=== PATIENT | female | born 1995 | race Caucasian/White ===

== ENCOUNTER → 2021-01-12 | Outpatient (CLI) | payer MEDICAID ==
--- NOTE | 2021-01-12 18:15 | Diagnostic Imaging Report ---
INDICATION: , 20 weeks 2 days by LMP TECHNIQUE: Multiple real-time grayscale images were obtained over the gravid uterus. COMPARISON: None FINDINGS: There is a single live intrauterine gestation in breech presentation. The heart rate measures 146 BPM. The amniotic fluid is within normal limits subjectively. A large vertical pocket measures 3.2 cm. The placenta is anterior to the right without evidence of previa. The cervix appears normal measuring 4.8 cm in length. The stomach is seen. The cerebellum and cisterna magna are seen. The cord insertion is seen. The bladder is seen. Two umbilical arteries are seen. The kidneys are seen. Left and right ventricular outflow tracts are seen. A four-chamber heart is seen. The nose and lips are seen. The placental cord insertion is seen. The profile is seen. Bilateral arms are seen. Lateral ventricles are seen. The diaphragm is seen. Bilateral legs are seen. The upper and lower spine is seen. Biometrical measurements are as follows: Biparietal 4.76 cm, age 20 weeks 3 days. Head circumference 18.19 cm, age 20 weeks 5 days. Abdominal circumference 15.53 cm, age 20 weeks 5 days. Femur length 3.26 cm, age 20 weeks 2 days. Sonographic estimate age: 20 weeks 4 days. Sonographic estimated date of delivery: 05/28/2021. Estimated Weight: 356 gm (+/- 52 gm). LMP percentile: 56%. heart rate: 147 beats per minute. number: 1 of 1. IMPRESSION: 1. Single live intrauterine gestation measuring at 20 weeks and 4 days which is within range of clinical dates. 2. Anatomic survey. No abnormality identified. 3. Breech presentation. Dictated by: Dictated on workstation # [id number]
== END ==
LOC: RAD 15:00
PROVIDERS: ATTEND Obstetrics & Gynecology
DX: O32.1XX0 Maternal care for breech presentation, not applicable or unspecified (principal); Z3A.20 20 weeks gestation of pregnancy
CPT/HCPCS: 76805

== ENCOUNTER 2021-02-23 13:35 | Emergency (ER) | payer MEDICAID ==
[~2021-02-23] VITALS: Ht 162 cm; Wt 92.0 kg
--- OUTSIDE RECORDS SUMMARY | 2021-02-23 13:42 | XMS REPORT | Clinical Summary ---
Author Author [facility] Address Unknown Phone Unavailable Care Team Providers Care Training Program Developer Name Role Phone Arlin Ramirez MD PCP Allergies No known active allergies Medications End Date Status Medication Sig Dispensed Refills Start Date Active Ibuprofen 200 MG CAPS giving one 0 0 / 1/200 tablet every 7 6-8 hours as needed for pain(self) Active Kmauolm-Clqykvkschgsw-Ket Take 650 mg 0 feine (MIGRAINE FORMULA by mouth PO) daily. Active fluticasone (FLOVENT HFA) Inhale 1 puff 1 Inhaler 1 44 MCG/ACT inhaler into the 5 lungs 2 (two) times daily. Active fluticasone (FLONASE) 50 1 spray by 16 g 3 0 MCG/ACT nasal spray Nasal route 2 6 (two) times daily. Active albuterol (PROVENTIL HFA) inhale 2 puff 1 g 0 108 (90 BASE) MCG/ACT by inhalation 6 inhaler route every 4 - 6 hours as needed for sob/wheezing Active cetirizine (ZYRTEC) 10 MG TAKE ONE 30 tablet 1 tablet TABLET BY 6 MOUTH DAILY FOR ALLERGIES Active montelukast (SINGULAIR) TAKE ONE 30 tablet 1 10 MG tablet TABLET BY 6 MOUTH AT BEDTIME Active Problems Problem Noted Date Benign neoplasm of skin, site unspecifi ed Unspecified asthma(493.90) Allergic rhinitis, cause unspecified Immunizations Name Administration Dates Next Due DTaP 04/26/2001, 03/11/1998, , 1997, 1997 [id number],injectable (WebIZ 04/08/2009 registry) Hep B,adolescent or 1997 pediatric Hep B/HiB (Comvax) 1997, 1997 Hepatitis B, NOS 1997, 1997, 11/1997 HiB (PRP-T) 03/11/1998, 1997, , 1997 Hib,NOS (WebIZ registry) 03/11/1998, 1997 IPV 04/26/2001 Influenza IIV3 MDV 12/28/2011 (Multi-dose vial) Influenza IIV3 PFree 01/01/2010, 12/24/2005 Influenza TIV (HX thru 11/27/2007, 12/22/2006, 11/2005, 12/02/2004, Nov 13 2009) 11/15/2002, 11/28/2001, 07/2000, 12/29/1998 MMR 04/26/2001, 03/11/1998 Meningococcal 09/27/2008 Polysaccharide valent-4 Diphtheria Toxoid Conjucate (Menactra) OPV (WebIZ registry) 03/11/1998, 1997, Polio,NOS (WebIZ 03/11/1998, 1997, registry) Tdap 09/27/2008 Varicella (Varivax) 09/27/2008, 05/27/1998 Family History Medical History Relation Name Comments Other Mother kidney stones Other Other Mother - Nephrolith iasis Other Other Sister #1 - is Aliv e, Allergic rhinitis Other Other Maternal Grandmothe r - is Alive, Cancer, colon; DM Type II Other Other Paternal Grandmothe r - is Alive, Hypertension Relation Name Status Comments Mother Alive Other Other Other Other Social History Date Tobacco Use Types Packs/Day Years Used Never Smoker Smokeless Tobacco: Never Used Tobacco Cessation: Counseling Given: No Comments Alcohol Use Standard Drinks/Week No 0 (1 standard drink = 0.6 o z pure alcohol) Sex Assigned at Date Recorded Not on file Last Filed Vital Signs Reading Time Taken Comments Vital Sign 100/64 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 Blood Pressure 72 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 Pulse 38 C (100.4 F) 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 Temperature - - Respiratory Rate - - Oxygen Saturation - - Inhaled Oxygen Concentration 87.1 kg (192 lb) 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 Weight 165.1 cm (5' 5") 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 Height 31.95 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 Body Mass Index Plan of Treatment Health Maintenance Due Date Last Done Comments HPV Vaccines (1 - 2-dose 02/24/2008 series) COVID-19 Vaccine (1) 2009 Hepatitis C Screening 2015 Cervical Cancer Screening 2018 DTaP,Tdap,and Td Vaccines 09/27/2018 09/27/2008, (7 - Td or Tdap) 04/26/2001, 03/11/1998, Additional history exists Influenza Vaccine (#1) 2020 12/28/2011, 01/01/2010, 11/27/2007, Additional history exists Pneumo-Vaccine: 65+Yrs (1 2062 of 1 - PPSV23) HIB Vaccines Completed 03/11/1998, 03/11/1998, 1997, Additional history exists IPV Vaccines Completed 04/26/2001, 03/11/1998, 03/11/1998, Additional history exists MMR Vaccines-Adult Completed 04/26/2001, 03/11/1998 Meningococcal Vaccine Aged Out 09/27/2008 No longe r eligible based on patient's age to complete this topic Varicella Vaccines Completed 09/27/2008, 05/27/1998 MenB Vaccine (Bexsero) Aged Out No longer eligi ble based on patient's age to complete this topic Pneumo-Vaccine: Peds (0-5 Aged Out No longer el igible based on patient's age to Yrs) & At-Risk Patients complete this topic (6-64 Yrs) Rotavirus Vaccines Aged Out No longer eligible based on patient's age to complete this topic Results Not on filefrom Last 3 Months Insurance Type Payer Benefit Subscriber ID Effective Phone Address Plan / Dates Group [facility] 19 [id number] 2011- [address] [address] Advance Directives For more information, please contact: [phone] 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
--- NOTE | 2021-02-23 16:40 | ED Cough/URI ---
General Chief Complaint: COVID19 Suspect/Confirmed Stated Complaint: N/V,BODY ACHES,BODY ACHE,HALE,FEVER Nursing Triage Note: PT PRESENTS TO ED VIA POV FROM HOME WITH COMPLAINTS OF N/V AND BODY CHILLS STARTING TODAY. History of Present Illness Date Seen by Provider: Feb 23, 2021 Time Seen by Provider: 16:39 Initial Comments Patient is a 26-year-old female who presents ED with flulike symptoms. She states symptoms started today. She woke up feeling achy. She reports body aches, fatigue and generalized weakness. She vomited 4 times nonbilious without any blood. Patient is currently 26 weeks . She denies of any lower abdominal pain, vaginal bleeding, vaginal discharge. Currently being managed by Dr. Mckeon. Currently on prenatals. Patient slightly tachycardic. She denies any chest pain, shortness of breath, cough. She states she does not feel well. Difficulty eating and feels dehydrated. Denies fever, headache, neck pain Allergies and Home Medications Allergies Coded Allergies: No Known Drug Allergies (Unverified , 02/23/21) Patient Home Medication List Home Medication List Reviewed: Yes Review of Systems Review of Systems Constitutional: chills; No diaphoresis, No dizziness, No fever; malaise, weakness EENTM: No nose congestion, No nose pain, No throat pain, No throat swelling Respiratory: No cough, No short of breath Gastrointestinal: No abdominal pain, No diarrhea; nausea, vomiting Genitourinary: No decreased output, No discharge, No dysuria Musculoskeletal: No back pain, No gout, No joint pain Skin: No change in color All Other Systems Reviewed Negative Unless Noted: Yes Past Moumynm-Mrczoi-Fbqqgx Hx Patient Social History Tobacco Use?: No Substance use?: No Alcohol Use?: No Pt feels they are or have been: No Immunizations Up To Date First/Initial COVID19 Vaccinat: MAR 2020 Second COVID19 Vaccination Osbaldo: APRIL 2020 COVID19 Vaccine Urban Planning Teacher: VIC Past Medical History Surgery/Hospitalization HX: SX: TONSILS, WISDOM TEETH. PMH: ASTHMA Physical Exam Vital Signs - First Documented 02/23/21 14:58 Temp 35.9 Pulse 126 Resp 18 B/P (MAP) 103/71 (82) Pulse Ox 100 Capillary Refill : Less Than 3 Seconds Height: '" Weight: lbs. oz. kg; 35.00 BMI Method: General Appearance: WD/WN, no apparent distress HEENT: PERRL/EOMI, normal ENT inspection, TMs normal, pharynx normal Neck: non-tender, full range of motion, supple Respiratory: chest non-tender, lungs clear, normal breath sounds, no respiratory distress, no accessory muscle use Cardiovascular: no edema, no gallop, no JVD, tachycardia Gastrointestinal: normal bowel sounds, non tender, soft, no organomegaly Extremities: normal range of motion, non-tender, normal inspection Neurologic/Psychiatric: frame bander II-XII nml as tested Skin: normal color, warm/dry Progress/Results/Core Measures Suspected Sepsis SIRS Temperature: Pulse: 126 Respiratory Rate: 18 Laboratory Tests 02/23/21 16:59: White Blood Count 9.0 Blood Pressure 103 /71 Mean: 82 Laboratory Tests 02/23/21 16:59: Creatinine 0.76, Platelet Count 219, Total Bilirubin 0.3 Results/Orders Lab Results Laboratory Tests Test 02/23/21 14:53 02/23/21 16:59 02/23/21 17:09 Range/Units Influenza Type A (RT-PCR) Not Detected Not Detecte Influenza Type B (RT-PCR) Not Detected Not Detecte SARS-CoV-2 RNA (RT-PCR) Detected H Not Detecte White Blood Count 9.0 4.3-11.0 10^3/uL Red Blood Count 3.78 L 3.80-5.11 10^6/uL Hemoglobin 10.8 L 11.5-16.0 g/dL Hematocrit 32 L 35-52 % Mean Corpuscular Volume 84 80-99 fL Mean Corpuscular Hemoglobin 29 25-34 pg Mean Corpuscular Hemoglobin Concent 34 32-36 g/dL Red Cell Distribution Width 14.3 10.0-14.5 % Platelet Count 219 130-400 10^3/uL Mean Platelet Volume 9.5 9.0-12.2 fL Immature Granulocyte % (Auto) 2 % Neutrophils (%) (Auto) 89 H 42-75 % Lymphocytes (%) (Auto) 3 L 12-44 % Monocytes (%) (Auto) 6 0-12 % Eosinophils (%) (Auto) 1 0-10 % Basophils (%) (Auto) 0 0-10 % Neutrophils # (Auto) 8.0 H 1.8-7.8 10^3/uL Lymphocytes # (Auto) 0.2 L 1.0-4.0 10^3/uL Monocytes # (Auto) 0.5 0.0-1.0 10^3/uL Eosinophils # (Auto) 0.1 0.0-0.3 10^3/uL Basophils # (Auto) 0.0 0.0-0.1 10^3/uL Immature Granulocyte # (Auto) 0.2 H 0.0-0.1 10^3/uL Neutrophils % (Manual) 92 % Lymphocytes % (Manual) 2 % Monocytes % (Manual) 4 % Eosinophils % (Manual) 0 % Basophils % (Manual) 0 % Band Neutrophils 2 % Blood Morphology Comment NORMAL Sodium Level 136 135-145 MMOL/L Potassium Level 3.1 L 3.6-5.0 MMOL/L Chloride Level 106 98-107 MMOL/L Carbon Dioxide Level 17 L 21-32 MMOL/L Anion Gap 13 5-14 MMOL/L Blood Urea Nitrogen 5 L 7-18 MG/DL Creatinine 0.76 0.60-1.30 MG/DL Estimat Glomerular Filtration Rate 93 BUN/Creatinine Ratio 7 Glucose Level 147 H 70-105 MG/DL Calcium Level 9.0 8.5-10.1 MG/DL Corrected Calcium 9.4 8.5-10.1 MG/DL Total Bilirubin 0.3 0.1-1.0 MG/DL Aspartate Amino Transf (AST/SGOT) 13 5-34 U/L Alanine Aminotransferase (ALT/SGPT) 12 0-55 U/L Alkaline Phosphatase 86 40-136 U/L Total Protein 6.3 L 6.4-8.2 GM/DL Albumin 3.5 3.2-4.5 GM/DL Urine Color ORANGE Urine Clarity CLOUDY Urine pH 6.0 5-9 Urine Specific [place] >=1.030 1.016-1.022 Urine Protein 1+ H NEGATIVE Urine Glucose (UA) NEGATIVE NEGATIVE Urine Ketones 2+ H NEGATIVE Urine Nitrite NEGATIVE NEGATIVE Urine Bilirubin 1+ H NEGATIVE Urine Urobilinogen 0.2 < = 1.0 MG/DL Urine Leukocyte Esterase NEGATIVE NEGATIVE Urine RBC (Auto) NEGATIVE NEGATIVE Urine RBC NONE /HPF Urine WBC 2-5 /HPF Urine Squamous Epithelial Cells 10-25 H /HPF Urine Crystals NONE /LPF Urine Bacteria MODERATE H /HPF Urine Casts NONE /LPF Urine Mucus NEGATIVE /LPF Urine Culture Indicated NO My Orders Orders - KARLA LINK Cbc With Automated Diff (02/23/21 16:36) Comprehensive Metabolic Panel (02/23/21 16:36) Ua Culture If Indicated (02/23/21 16:36) Ns Iv 1000 Ml (Sodium Chloride 0.9%) (02/23/21 16:45) Metoclopramide Injection (Reglan Injecti (02/23/21 16:45) Heart Tones (02/23/21 16:38) Manual Differential (02/23/21 16:59) Ns Iv 1000 Ml (Sodium Chloride 0.9%) (02/23/21 17:45) Ekg Tracing (02/23/21 17:35) Labetalol Tablet (Normodyne Tablet) (02/23/21 18:45) Labetalol Tablet (Normodyne Tablet) (02/23/21 18:42) Medications Given in ED Current Medications Medications Dose Ordered Sig/[place] Route Start Time Stop Time Status Last Admin Dose Admin Labetalol HCl 200 mg ONCE ONCE PO 02/23/21 18:45 02/23/21 18:48 DC 02/23/21 18:44 200 MG Metoclopramide HCl 10 mg ONCE ONCE IVP 02/23/21 16:45 02/23/21 16:46 DC 02/23/21 16:57 10 MG Vital Signs/I&O 02/23/21 02/23/21 14:58 19:30 Temp 35.9 Pulse 126 123 Resp 18 20 B/P (MAP) 103/71 (82) 124/84 Pulse Ox 100 99 Capillary Refill : Less Than 3 Seconds Blood Pressure Mean: 82 Departure Communication (Admissions) Patient is G1, P0 who presents ED with flulike symptoms. Patient vomited this morning. Patient denies of any chest pain or shortness of breath or cough. She states she has body aches and fatigue. Patient tested positive for Covid. Lab work was drawn secondary to the tachycardia. Patient was given 2 L of fluid. Normal white blood count. Slightly dehydrated. No significant improvement of her heart rate with IV fluids. Heart rate increased to 1 40-150. Patient states she feels extremely anxious. Appear to increase when I walked into the room. She was slightly hypotensive but did improve with fluids. Discussed patient with Dr. RILEY TALENT COORDINATOR on-call for Dr. Mckeon (who she SEES). Discussed a bout the patient and possibly white coat versus dehydration versus cardiac. Did try a dose of labetalol which seemed to help here in the ED because she remained 1 40-1 50 heart rate. She was eating crackers drinking at bedside. Reevaluated the patient she had no chest pain or shortness of breath. Improvement of her heart rate to 124. She states she feels a lot better at this time would like to be discharged. Improvement of vital signs. Outpatient follow-up with TALENT COORDINATOR in the next 1 to 2 days was recommended. Impression Primary Impression: COVID-19 Disposition: 01 HOME, SELF-CARE Condition: Stable Departure-Patient Inst. Referrals: SPEEDY MCKEON DO (PCP/Family) Primary Care Physician Patient Instructions: COVID-19 and (DC) Add. Discharge Instructions: Need to follow-up with your TALENT COORDINATOR for further evaluation. Recommend staying hydrated. All discharge instructions reviewed with patient and/or family. Voiced understanding. KARLA LINK Feb 23, 2021 16:40
[2021-02-23] MEDS ORDERED: METOCLOPRAMIDE INJ 10 MG/2 ML (REGLAN) IVP ONE (16:45)
[2021-02-23] MEDS ORDERED: NS IV 1000 ML 1,000 ML IV SCH ×2 (16:45→17:45)
[2021-02-23 17:09] LABS: BASOPHILS % (AUTO) 0 % (0-10); EOSINOPHILS # (AUTO) 0.1 10^3/uL (0.0-0.3); EOSINOPHILS % (AUTO) 1 % (0-10); HEMATOCRIT 32 % (35-52); HEMOGLOBIN 10.8 g/dL (11.5-16.0); LYMPHOCYTES # (AUTO) 0.2 10^3/uL (1.0-4.0); LYMPHOCYTES % (AUTO) 3 % (12-44); MEAN CORPUSCULAR HEMOGLOBIN 29 pg (25-34); MEAN CORPUSCULAR HGB CONC 34 g/dL (32-36); MEAN CORPUSCULAR VOLUME 84 fL (80-99); MEAN PLATELET VOLUME 9.5 fL (9.0-12.2); MONOCYTES # (AUTO) 0.5 10^3/uL (0.0-1.0); MONOCYTES % (AUTO) 6 % (0-12); NEUTROPHILS % (AUTO) 89 % (42-75); PLATELET COUNT 219 10^3/uL (130-400)
[2021-02-23 17:15] LABS: CLARITY,URINE CLOUDY; COLOR,URINE ORANGE; GLUCOSE, URINE (UA) NEGATIVE (NEGATIVE); KETONES,URINE 2+ (NEGATIVE); LEUKOCYTE ESTERASE ,URINE NEGATIVE (NEGATIVE); NITRITE,URINE NEGATIVE (NEGATIVE); PROTEIN,URINE 1+ (NEGATIVE)
[2021-02-23 17:21] LABS: ALBUMIN 3.5 GM/DL (3.2-4.5)
[2021-02-23 17:22] LABS: POTASSIUM 3.1 MMOL/L (3.6-5.0)
[2021-02-23 17:24] LABS: BILIRUBIN,URINE 1+ (NEGATIVE)
[2021-02-23 17:24] LABS: TOTAL PROTEIN 6.3 GM/DL (6.4-8.2)
[2021-02-23 17:25] LABS: BACTERIA,URINE MODERATE /HPF
[2021-02-23 17:26] LABS: BILIRUBIN,TOTAL 0.3 MG/DL (0.1-1.0)
[2021-02-23 17:28] LABS: CREATININE SERUM 0.76 MG/DL (0.60-1.30)
[2021-02-23 17:29] LABS: BAND NEUTROPHILS 2 %; BASOPHILS % (MANUAL) 0 %; EOSINOPHILS % (MANUAL) 0 %; LYMPHOCYTES % (MANUAL) 2 %; MONOCYTES % (MANUAL) 4 %; NEUTROPHILS % (MANUAL) 92 %
[2021-02-23 17:30] LABS: RBC MORPH NORMAL
[2021-02-23] MEDS ORDERED: LABETALOL 200 MG (NORMODYNE) TAB PO ONE ×2 (18:42→18:45)
[2021-02-23 19:30] VITALS: BP 124/84
== END 2021-02-23 19:30 | disposition home or self-care (01) ==
LOC: EDUNIT# 13:35 → ER 13:39
DX: U07.1 COVID-19 (principal); R00.0 Tachycardia, unspecified
CPT/HCPCS: 36415; 80053; 81000; 85007; 85027; 87636; 93005